=== PATIENT | female | born 1970 ===

== ENCOUNTER 2025-03-25 07:30 | Day surgery (SDC) | payer OTHER ==
[2025-03-18 13:56] LABS: RH POSITIVE
[~2025-03-25] VITALS: Ht 165.1 cm; Wt 108.9 kg
[~2025-03-25 07:30] MED LIST: HYDRODIURIL12.5 MG PO; LEVOTHYROXINE25 MCG PO; VIT D3-VIT K21 EACH PO
== END 2025-03-25 10:00 | disposition home or self-care (01) ==
LOC: CIR.AMB 07:30 → SURH 10:00 → EDSTATUS 12:45 → O/R 19:17 → SURG 19:17
PROVIDERS: ATTEND Surgery
DX: C20 Malignant neoplasm of rectum (principal); Z53.09 Procedure and treatment not carried out because of other contraindication